=== PATIENT | female | born 1985 | race Hispanic/Latino ===

== ENCOUNTER 2016-12-23 09:17 | Observation (INO) | payer BC ==
[2016-12-23 09:39] VITALS: O2SAT 100
[2016-12-23] MEDS ORDERED: Sodium Chloride 0.9% 1,000 ML IV STA (09:46)
[2016-12-23 10:04] LABS: RBC URINE 228 /hpf (0-3); URINE BACTERIA OCC (<OCC); URINE BILIRUBIN NEGATIVE (NEGATIVE); URINE BLOOD LARGE (NEGATIVE); URINE COLOR AMBER (YELLOW); URINE GLUCOSE (UA) NEG (Normal); URINE KETONE NEGATIVE (NEGATIVE); URINE LEUKOCYTE ESTERASE NEG Leu/uL (Negative); URINE PROTEIN 30 mg/dL (NEGATIVE); URINE UROBILINOGEN 0.2-1.0 mg/dL (0.2-1.0); WBC URINE 2 /hpf (0-5)
--- NOTE | 2016-12-23 10:16 | ED PDOC ---
HPI: Female Pain Time Seen by Provider: 12/23/16 09:38 Chief Complaint (Nursing): Female Genitourinary Chief Complaint (Provider): Vaginal bleeding History Per: Patient History/Exam Limitations: no limitations Onset/Duration Of Symptoms: Persistent (7 weeks) Current Symptoms Are (Timing): Still Present Additional Complaint(s): The patient is a 31yo female, with a delivery in July, presents to the ED for evaluation for persistent vaginal bleeding for the past 7 weeks. She reports the bleeding has gotten heavier and states she used 10-12 pads per day. Patient reports she was prescribed OCP which she has been taking with no relief. She states her father, who is a physician, told her she was orthostatic 2 weeks ago and was seen at [facility]. During that visit, patient was given fluids, has a pelvic US which indicated some ovarian cysts; her hemoglobin level during that visit was 13. Patient now reports she feels light headed and states her father contacted Dr. Jalloh who advised the patient to visit the ED. She offers no other medical complaints. Abnormal Vaginal Bleeding: Yes : 2 Para: 2 Past Medical History Reviewed: Historical Data, Nursing Documentation, Vital Signs Vital Signs: Last Vital Signs Temp 98.2 F 12/23/16 09:35 Pulse 72 12/23/16 09:35 Resp 18 12/23/16 09:35 BP 100/79 12/23/16 09:35 Pulse Ox 100 12/23/16 09:35 - Medical History PMH: No Chronic Diseases Denies: Chronic Kidney Disease - Surgical History Surgical History: No Surg Hx Denies: - Family History Family History: States: No Known Family Hx - Living Arrangements Living Arrangements: With Family - Social History Current smoker - smoking cessation education provided: No Ex-Smoker (has not smoked in the last 12 months): No Alcohol: None Drugs: Denies - Home Medications Home Medications: Ambulatory Orders Medication Instructions Recorded Iron Carb,Gl/FA/B12/C/Docusate 1 tab PO DAILY 12/23/16 [Ferralet 90] - Allergies Allergies/Adverse Reactions: Allergies Allergy/AdvReac Type Severity Reaction Status Date / Time shellfish derived Allergy RASH Verified 12/23/16 09:40 Review of Systems ROS Statement: Except As Marked, All Systems Reviewed And Found Negative Cardiovascular: Positive for: Light Headedness Genitourinary Female: Positive for: Vaginal Bleeding Physical Exam - Reviewed Nursing Documentation Reviewed: Yes Vital Signs Reviewed: Yes - Physical Exam Appears: Positive for: Non-toxic, Uncomfortable Head Exam: Positive for: ATRAUMATIC, NORMAL INSPECTION, NORMOCEPHALIC Skin: Positive for: Warm, Dry Eye Exam: Positive for: Normal appearance Neck: Positive for: Supple Cardiovascular/Chest: Positive for: Regular Rate, Rhythm Respiratory: Positive for: Normal Breath Sounds. Negative for: Respiratory Distress Gastrointestinal/Abdominal: Positive for: Soft. Negative for: Tenderness Extremity: Positive for: Normal ROM. Negative for: Deformity, Swelling Neurologic/Psych: Positive for: Alert, Oriented. Negative for: Motor/Sensory Deficits - Laboratory Results Result Diagrams: 12/23/16 10:10 12/23/16 10:59 - ECG O2 Sat by Pulse Oximetry: 100 (RA) Pulse Ox Interpretation: Normal Medical Decision Making Medical Decision Making: Time: 954 Impression: Vaginal bleeding x 7 weeks Plan: -- Labs -- IV Fluids Reassess Time: 101 Patient to be admitted under Dr. Jalloh for dysfunctional uterine bleeding. Scribe Attestation: Documented by Audrey Tsai acting as a scribe for Pat Valdes MD. Provider Attestation: All medical record entries made by the Scribe were at my direction and personally dictated by me. I have reviewed the chart and agree that the record accurately reflects my personal performance of the history, physical exam, medical decision making, and the department course for this patient. I have also personally directed, reviewed, and agree with the discharge instructions and disposition. Disposition - Clinical Impression Clinical Impression: Female genitourinary symptoms, Dysfunctional uterine bleeding - Patient ED Disposition Is Patient to be Admitted: Yes - Disposition Disposition Time: 10:18 Condition: STABLE - Pt Status Changed To: Hospital Disposition Of: Observation - POA Present On Arrival: None
--- NOTE | 2016-12-23 10:22 | CP.PCM.HP ---
History of Present Illness - History of Present Illness History of Present Illness: 31yo female ~4months s/p with continued daily heavy bleeding. Pt has been to hospital and out-patient office 4-5x over past month. Pt placed on multiple regimens to control bleeding without results. Pt reports waking up this morning 'in pool of blood.' At this time, denies any CP, SOB, syncope, N/V, F/ C. Discussed options with patient. Recommended D&C to patient due to persistent bleeding despite attempted medical management. Discussed the R/B/A of procedure and all patient questions answered. Present on Admission - Present on Admission Any Indicators Present on Admission: No History of DVT/PE: No History of Uncontrolled Diabetes: No Urinary Catheter: No Decubitus Ulcer Present: No Past Patient History - Past Medical History & Family History Past Medical History?: No - Past Social History Smoking Status: Never Smoked - CARDIAC Hx Cardiac Disorders: No - PULMONARY Hx Respiratory Disorders: No - NEUROLOGICAL Hx Neurological Disorder: No - HEENT Hx HEENT Problems: No - RENAL Hx Chronic Kidney Disease: No - ENDOCRINE/METABOLIC Hx Endocrine Disorders: No - HEMATOLOGICAL/ONCOLOGICAL Hx Blood Disorders: No - INTEGUMENTARY Hx Dermatological Problems: No - MUSCULOSKELETAL/RHEUMATOLOGICAL Hx Musculoskeletal Disorders: No - GASTROINTESTINAL Hx Gastrointestinal Disorders: No - GENITOURINARY/GYNECOLOGICAL Hx Genitourinary Disorders: No - PSYCHIATRIC Hx Psychophysiologic Disorder: No Hx Substance Use: No - SURGICAL HISTORY Hx Surgeries: Yes Other/Comment: Hx Tonsillitis. Left knee surgery - ANESTHESIA Hx Anesthesia: Yes Meds Allergies/Adverse Reactions: Allergies Allergy/AdvReac Type Severity Reaction Status Date / Time shellfish derived Allergy RASH Verified 12/23/16 09:40 Physical Exam - Constitutional Appears: Well, Non-toxic - Head Exam Head Exam: ATRAUMATIC - Eye Exam Eye Exam: Normal appearance, PERRL - ENT Exam ENT Exam: Mucous Membranes Moist - Respiratory Exam Respiratory Exam: NORMAL BREATHING PATTERN - Cardiovascular Exam Cardiovascular Exam: REGULAR RHYTHM - GI/Abdominal Exam Additional comments: Soft/NT/ND. No rebound, no gaurding. - Exam Additional comments: Deferred - Extremities Exam Extremities exam: Positive for: normal inspection Results - Vital Signs Recent Vital Signs: Last Vital Signs Temp 98.2 F 12/23/16 09:35 Pulse 72 12/23/16 09:35 Resp 18 12/23/16 09:35 BP 100/79 12/23/16 09:35 Pulse Ox 100 12/23/16 10:16 - Labs Labs: Laboratory Results - last 24 hr 12/23/16 09:50 Urine Color La Urine Clarity Clear Urine pH 7.0 Ur Specific [place] 1.006 Urine Protein 30 Urine Glucose (UA) Neg Urine Ketones Negative Urine Blood Large Urine Nitrate Negative Urine Bilirubin Negative Urine Urobilinogen 0.2-1.0 Ur Leukocyte Esterase Neg Urine RBC (Auto) 228 H Urine Microscopic WBC 2 Ur Squamous Epith Cells 1 Urine Bacteria Occ H - Imaging and Cardiology US - abdomen Status: Report reviewed by me Additional comment: Ultrasound done12/08/16 at another facility. Report reviewed. Results unremarkable x mildly thickened EM Assessment & Plan - Assessment and Plan (Free Text) Assessment: Delayed bleeding, likely subinvolution of the uterus. Plan: As above Routine postop observation and care Anticipate D/C home today - Date & Time Date: 12/23/16 Time: 10:26
[2016-12-23 10:36] LABS: BASO % 0.4 % (0.0-2.0); EOS % 0.4 % (0.0-4.0); HEMATOCRIT 43.1 % (34.0-47.0); LYMPH % 27.4 % (20.0-40.0); MEAN CELL VOLUME 91.3 fl (81.0-99.0); MEAN CORPUSCULAR HEMOGLOBIN 29.9 pg (27.0-31.0); MEAN CORPUSCULAR HGB CONC 32.7 g/dL (33.0-37.0); MEAN PLATELET VOLUME 9.6 fl (7.2-11.7); MONO # 0.4 K/uL (0.0-0.8); MONO % 5.6 % (0.0-10.0); NEUT # 4.8 K/uL (1.8-7.0); NEUT % 66.2 % (50.0-75.0); NRBC % 0.2 % (0.0-0.0); RED CELL DISTRIBUTION WIDTH 12.9 % (11.5-14.5); WHITE BLOOD COUNT 7.3 K/uL (4.8-10.8)
[2016-12-23 10:45] LABS: ALB/GLOB RATIO 1.4 (1.0-2.1); ALKALINE PHOSPHATASE 67 U/L (38-126); ALT/SGPT 29 U/L (9-52); AST/SGOT 48 U/L (14-36); BILIRUBIN,TOTAL 1.4 mg/dl (0.2-1.3); BLOOD UREA NITROGEN 12 mg/dl (7-17); CALCIUM 9.8 mg/dL (8.4-10.2); CARBON DIOXIDE 24 mmol/L (22-30); CHLORIDE 104 mmol/L (98-107); GFR AFRICAN-AMERICAN > 60; GLUCOSE,RANDOM 81 mg/dL (65-105); SODIUM 146 mmol/l (132-148); TOTAL PROTEIN 9.4 G/DL (6.3-8.2)
[2016-12-23 10:46] LABS: POTASSIUM 5.2 MMOL/L (3.6-5.0)
[2016-12-23 11:26] LABS: ALB/GLOB RATIO 1.5 (1.0-2.1); ALKALINE PHOSPHATASE 60 U/L (38-126); ALT/SGPT 34 U/L (9-52); AST/SGOT 27 U/L (14-36); BILIRUBIN,TOTAL 0.7 mg/dl (0.2-1.3); BLOOD UREA NITROGEN 11 mg/dl (7-17); CALCIUM 9.4 mg/dL (8.4-10.2); CARBON DIOXIDE 23 mmol/L (22-30); CHLORIDE 107 mmol/L (98-107); GFR AFRICAN-AMERICAN > 60; GLUCOSE,RANDOM 77 mg/dL (65-105); POTASSIUM 3.9 MMOL/L (3.6-5.0); SODIUM 145 mmol/l (132-148); TOTAL PROTEIN 7.6 G/DL (6.3-8.2)
[2016-12-23 11:27] LABS: PARTIAL THROMBOPLASTIN TIME 28.3 Seconds (25.6-37.1)
[2016-12-23] MEDS ORDERED: Phenylephrine 10 mg/ml Inj ONE (11:36)
[2016-12-23] MEDS ORDERED: ePHEDrine 50 mg/ml Inj ONE (11:36)
[2016-12-23] MEDS ORDERED: Lidocaine 4% (Laryng-O-Jet) Kit MM ONE (11:36)
[2016-12-23] MEDS ORDERED: Etomidate 20 mg/10ml Inj IV ONE (11:36)
[2016-12-23] MEDS ORDERED: Rocuronium 10 mg/ml (5 ml) ONE (11:36)
[2016-12-23] MEDS ORDERED: Dexamethasone 4 mg/1 ml ONE (11:40)
[2016-12-23] MEDS ORDERED: Propofol 10 mg/ml Inj (20 ML) ONE ×2 (11:55→12:10)
[2016-12-23] MEDS ORDERED: Midazolam 2 MG/2 ML VIAL ONE (11:58)
[2016-12-23] MEDS ORDERED: Sodium Chloride 0.9% 1,000 ML IV ONE (12:27)
[2016-12-23] MEDS ORDERED: Lactated Ringer's 500 ML IV ONE (12:28)
--- NOTE | 2016-12-23 12:54 | PCM.SURG1 ---
Surgeon's Initial Post Op Note - Surgeon's Notes Surgeon: Shubham Tactical/Mobile Watch Officer: N/A Type of Anesthesia: General Endo Pre-Operative Diagnosis: Delayed hemorrhage Operative Findings: Mildly enlarged uterus, otherwise normal pelvic anatomy Post-Operative Diagnosis: Same + subinvolution of the uterus Operation Performed: Suction D&C Specimen/Specimens Removed: EMC Estimated Blood Loss: EBL {In ML}: 100 Blood Products Given: N/A Drains Used: No Drains Post-Op Condition: Good Date of Surgery/Procedure: 12/23/16 Time of Surgery/Procedure: 12:54
[2016-12-23 13:31] VITALS: RESP 16
[2016-12-23] MEDS ORDERED: Lactated Ringer's 1,000 ML IV SCH (14:00)
--- NOTE | 2016-12-23 14:05 | CP.PCM.DIS ---
Provider - Provider Date of Admission: 12/23/16 10:18 Attending physician: Loco Jalloh MD Primary care physician: Shubham Time Spent in preparation of Discharge (in minutes): 10 Diagnosis - Discharge Diagnosis (1) Delayed hemorrhage Status: Acute Hospital Course - Lab Results Lab Results: Most Recent Lab Values WBC 7.3 K/uL (4.8-10.8) 12/23/16 10:10 RBC 4.72 Mil/uL (3.80-5.20) 12/23/16 10:10 Hgb 14.1 g/dL (12.0-16.0) 12/23/16 10:10 Hct 43.1 % (34.0-47.0) 12/23/16 10:10 MCV 91.3 fl (81.0-99.0) 12/23/16 10:10 MCH 29.9 pg (27.0-31.0) 12/23/16 10:10 MCHC 32.7 g/dL (33.0-37.0) L 12/23/16 10:10 RDW 12.9 % (11.5-14.5) 12/23/16 10:10 Plt Count 245 K/uL (130-400) 12/23/16 10:10 MPV 9.6 fl (7.2-11.7) 12/23/16 10:10 Neut % (Auto) 66.2 % (50.0-75.0) 12/23/16 10:10 Lymph % (Auto) 27.4 % (20.0-40.0) 12/23/16 10:10 [place] % (Auto) 5.6 % (0.0-10.0) 12/23/16 10:10 Eos % (Auto) 0.4 % (0.0-4.0) 12/23/16 10:10 Baso % (Auto) 0.4 % (0.0-2.0) 12/23/16 10:10 Neut # 4.8 K/uL (1.8-7.0) 12/23/16 10:10 Lymph # 2.0 K/uL (1.0-4.3) 12/23/16 10:10 [place] # 0.4 K/uL (0.0-0.8) 12/23/16 10:10 Eos # 0.0 K/uL (0.0-0.7) 12/23/16 10:10 Baso # 0.0 K/uL (0.0-0.2) 12/23/16 10:10 PT 11.9 Seconds (9.8-13.1) 12/23/16 10:59 INR 1.2 (0.9-1.2) 12/23/16 10:59 APTT 28.3 Seconds (25.6-37.1) 12/23/16 10:59 Sodium 145 mmol/l (132-148) 12/23/16 10:59 Potassium 3.9 MMOL/L (3.6-5.0) 12/23/16 10:59 Chloride 107 mmol/L (98-107) 12/23/16 10:59 Carbon Dioxide 23 mmol/L (22-30) 12/23/16 10:59 Anion Gap 18 (10-20) 12/23/16 10:59 BUN 11 mg/dl (7-17) 12/23/16 10:59 Creatinine 0.7 mg/dL (0.7-1.2) 12/23/16 10:59 Est GFR ( Amer) > 60 12/23/16 10:59 Est GFR (Non-Af Amer) > 60 12/23/16 10:59 Random Glucose 77 mg/dL (65-105) 12/23/16 10:59 Calcium 9.4 mg/dL (8.4-10.2) 12/23/16 10:59 Total Bilirubin 0.7 mg/dl (0.2-1.3) 12/23/16 10:59 AST 27 U/L (14-36) 12/23/16 10:59 ALT 34 U/L (9-52) 12/23/16 10:59 Alkaline Phosphatase 60 U/L (38-126) 12/23/16 10:59 Total Protein 7.6 G/DL (6.3-8.2) 12/23/16 10:59 Albumin 4.6 g/dL (3.5-5.0) 12/23/16 10:59 Globulin 3.0 gm/dL (2.2-3.9) 12/23/16 10:59 Albumin/Globulin Ratio 1.5 (1.0-2.1) 12/23/16 10:59 Urine Color La (YELLOW) 12/23/16 09:50 Urine Clarity Clear (Clear) 12/23/16 09:50 Urine pH 7.0 (5.0-8.0) 12/23/16 09:50 Ur Specific [place] 1.006 (1.003-1.030) 12/23/16 09:50 Urine Protein 30 mg/dL (NEGATIVE) 12/23/16 09:50 Urine Glucose (UA) Neg mg/dL (Normal) 12/23/16 09:50 Urine Ketones Negative mg/dL (NEGATIVE) 12/23/16 09:50 Urine Blood Large (NEGATIVE) 12/23/16 09:50 Urine Nitrate Negative (NEGATIVE) 12/23/16 09:50 Urine Bilirubin Negative (NEGATIVE) 12/23/16 09:50 Urine Urobilinogen 0.2-1.0 mg/dL (0.2-1.0) 12/23/16 09:50 Ur Leukocyte Esterase Neg [place]/uL (Negative) 12/23/16 09:50 Urine RBC (Auto) 228 /hpf (0-3) H 12/23/16 09:50 Urine Microscopic WBC 2 /hpf (0-5) 12/23/16 09:50 Ur Squamous Epith Cells 1 /hpf (0-5) 12/23/16 09:50 Urine Bacteria Occ (<OCC) H 12/23/16 09:50 Blood Type A POSITIVE 12/23/16 10:53 Antibody Screen Negative 12/23/16 10:53 BBK History Checked No verified bt 12/23/16 10:53 - Hospital Course Hospital Course: Patient presented to emergency Department on 12/23/2016 due to heavy vaginal bleeding for the past 3 weeks. After evaluation, patient had uncomplicated dilation and curettage. Procedure uncomplicated. Postoperative course routine. Patient discharged home on 12/23/2016 - Date & Time of H&P Date of H&P: 12/23/16 Time of H&P: 10:30 Discharge Exam - Head Exam Head Exam: ATRAUMATIC Discharge Plan - Follow Up Plan Condition: FAIR Disposition: HOME/ ROUTINE
[2016-12-23 14:21] VITALS: BP 130/83; PULSE 52; TEMP 97.4
[2016-12-23] MEDS ORDERED: HYDROmorphone 0.5 mg/0.5 ml ISec IVP PRN (15:03)
--- NOTE | 2016-12-24 05:58 | OP ---
PROCEDURE DATE: 12/23/2016 PREOPERATIVE DIAGNOSIS: Delayed hemorrhage. POSTOPERATIVE DIAGNOSES: Delayed hemorrhage plus subinvolution of the uterus. OPERATIVE FINDINGS: Mildly enlarged uterus, otherwise normal pelvic anatomy. OPERATION PERFORMED: Suction, dilation, and curettage. ANESTHESIA: General. PATHOLOGY: EMC. ESTIMATED BLOOD LOSS: 100 mL. FLUIDS: 500 mL lactated Ringer's. URINE OUTPUT: 100 mL of clear urine. PROCEDURE: The patient was taken to the operating room, where general anesthesia was found to be adequate. The patient was prepped and draped in normal sterile fashion in the dorsal lithotomy position. A weighted speculum was placed at the posterior aspect of the vagina. A Remy retractor was placed at the anterior surface of the vagina. The cervix was grasped with single tooth tenaculum at the anterior surface. The cervix was dilated with a Renner dilator to a size of 20-[place]. The suction device was placed through the cervix into the uterine cavity. The suction device was activated and blood with clots and small amount of tissue was seen and removed from the uterus. Suction device was deactivated and removed from the uterus. The uterine lining was curetted with a sharp curette until a gritty texture noted. Again, the suction device was placed through the cervix into the uterine cavity. The suction device was activated and a small amount of blood and clots were removed from the uterus. Suction device was deactivated and removed from the uterus. The tenaculum was removed from the cervix. The cervical os was found to be hemostatic. Due to small amount of bleeding at the tenaculum site, a [id number] stitch with 0 Vicryl was placed at the tenaculum site. After placement of suture, tenaculum site was found to be hemostatic. The patient tolerated the procedure well. All sponge count, lap count and needle counts were correct x2. There were no complications. The patient was taken to the recovery room awake and in stable condition. Loco Jalloh MD
== END 2016-12-23 15:53 | disposition home or self-care (01) ==
LOC: H.ER 09:17 → H.ERHOLD 10:18 → INTOOBSV 10:18 → H.ER 12:08 → H.MEDSURG1 14:05
PROVIDERS: ADMIT Obstetrics & Gynecology; ATTEND Obstetrics & Gynecology
DX: O72.2 Delayed and secondary postpartum hemorrhage (principal); N85.3 Subinvolution of uterus; N83.209 Unspecified ovarian cyst, unspecified side; N85.2 Hypertrophy of uterus; N93.8 Other specified abnormal uterine and vaginal bleeding; R42 Dizziness and giddiness
CPT/HCPCS: 59160; 80053; 81003; 81025; 85025; 85610; 85730; 86850; 86900; 88305; 99284; G0378; J1100; J2001; J2210; J2250; J2370; J2405; J2704; J2765; J3010; J7030; J7040; J7120